=== PATIENT | male | born 1995 | race Caucasian/White ===

== ENCOUNTER 2019-10-21 23:00 | Emergency (ER) | payer OTHER ==
[~2019-10-21] VITALS: Ht 172.7 cm; Wt 70.3 kg
[~2019-10-21 23:00] MED LIST: AMOXIL500 MG PO; PREDNISONE20 MG PO; TYLENOL W/CODE480 ML PO; ZITHROMAX200 MG/5 M PO; Zofran4 MG PO
[2019-10-22] MEDS ORDERED: KEFLEX500 M1 PO (01:16)
== END 2019-10-22 01:30 | disposition home or self-care (01) ==
LOC: ED 23:00
DX: S61.313A Laceration without foreign body of left middle finger with damage to nail, initial encounter (principal); S62.633A Displaced fracture of distal phalanx of left middle finger, initial encounter for closed fracture; Z79.899 Other long term (current) drug therapy; W23.0XXA Caught, crushed, jammed, or pinched between moving objects, initial encounter; Y93.89 Activity, other specified; Y92.89 Other specified places as the place of occurrence of the external cause; Y99.8 Other external cause status